=== PATIENT | female | born 1965 | race Hispanic/Latino ===

== ENCOUNTER → 2018-02-14 | Day surgery (SDC) | payer BC ==
[~2018-02-14] MED LIST: ALENDRONATE SOD70 MG PO; AMLODIPINE BESY10 MG PO; BYSTOLIC10 MG PO; CARVEDILOL3.125 MG PO; DIOVAN160 MG PO; ERGOCALCIFEROL1 GM PO; FENTANYL CITRATE/PF 100MCG/2 ML INJ ONE; GLUCAGON FOR INJ 1 MG VIAL ONE; HYOSCYAMINE SULFATE 0.5 MG/ML AMP ONE; LEVOTHYROXINE50 MCG PO; METFORMIN HCL500 MG PO; MIDAZOLAM HCL 2 MG/2 ML VIAL ONE; OMEPRAZOLE40 MG PO; ONDANSETRON HCL INJ 2 MG/ML VIAL ONE; PROPOFOL IV EMULSION 10 MG/ML 50 ML VIAL ONE; SIMVASTATIN20 MG PO; ZOCOR20 MG PO
[2018-02-14 14:12] LABS: WBC,FECAL (FECAL LACTOFERRIN) NEGATIVE (NEGATIVE)
--- NOTE | 2018-02-14 14:35 | Operative Report ---
DATE OF PROCEDURE: February 14, 2018 REFERRING PHYSICIAN: Dr. Cheo Stephens. PROCEDURE PERFORMED: Colonoscopy and polypectomy with biopsies. INDICATIONS FOR COLONOSCOPY: Colorectal cancer screening. Diarrhea. MEDICATION: Patient was done under MAC. Please see anesthesiologist's note. PROCEDURE: With the patient in the left lateral decubitus position, the flexible fiberoptic Olympus colonoscope was inserted into the rectum with ease and advanced all the way to the cecum. A minute polyp was hot biopsied from the cecum. The ileocecal valve was intubated, and the scope was advanced into the terminal ileum. Biopsies were obtained. The scope was then withdrawn back into the colon. It was then withdrawn slowly. Mucosa overlying the ascending and the transverse grossly appeared to be within normal limits. There were some patchy mild inflammatory changes noted in the left colon. Multiple random biopsies were obtained. The scope was then retroflexed into the distal rectum and small internal hemorrhoids were noted, none of which was actively bleeding. The scope was then straightened out. It was subsequently withdrawn after securing an adequate stool specimen that was sent for the appropriate stool studies. Patient tolerated the procedure well. IMPRESSION: 1. Cecal polyp hot biopsied. 2. Patchy left-sided colitis. 3. Internal hemorrhoids, none actively bleeding. PLAN: Follow up histology. Follow up stool studies. Initiate VSL#3 DS 1 p.o. b.i.d. and Bentyl 10 mg 1 p.o. t.i.d. Patient might benefit from a followup colonoscopy in 3 years. Job#: [id number] EV cc:CHEO STEPHENS DO
[2018-02-15 14:41] LABS: C DIFFICILE TOXIN A&B AMP PROB NEGATIVE (NEGATIVE)
== END | disposition home or self-care (01) ==
LOC: OR 10:39
PROVIDERS: ATTEND Internal Medicine Gastroenterology
DX: K51.50 Left sided colitis without complications (principal); D12.0 Benign neoplasm of cecum; K64.8 Other hemorrhoids; K21.9 Gastro-esophageal reflux disease without esophagitis; R63.4 Abnormal weight loss; I10 Essential (primary) hypertension; E11.9 Type 2 diabetes mellitus without complications; E03.9 Hypothyroidism, unspecified; E66.01 Morbid (severe) obesity due to excess calories; Z88.5 Allergy status to narcotic agent; Z01.810 Encounter for preprocedural cardiovascular examination; Z68.38 Body mass index [BMI] 38.0-38.9, adult; Z80.0 Family history of malignant neoplasm of digestive organs
CPT/HCPCS: 36415; 45384; 82948; 83630; 83993; 87045; 87177; 87328; 87493; 93005; J1610; J1980; J2250; J2405; 45378; 45380

== ENCOUNTER 2021-09-26 16:50 | Emergency (ER) | payer BC, OTHER ==
[~2021-09-26] VITALS: Ht 157.5 cm; Wt 95.3 kg
[~2021-09-26 16:50] MED LIST changes: -FENTANYL CITRATE/PF 100MCG/2 ML INJ ONE; -GLUCAGON FOR INJ 1 MG VIAL ONE; -HYOSCYAMINE SULFATE 0.5 MG/ML AMP ONE; -MIDAZOLAM HCL 2 MG/2 ML VIAL ONE; -ONDANSETRON HCL INJ 2 MG/ML VIAL ONE; -PROPOFOL IV EMULSION 10 MG/ML 50 ML VIAL ONE
[2021-09-26] MEDS ORDERED: MECLIZINE HCL 12.5 MG TAB PO ONE (19:45)
[2021-09-26] MEDS ORDERED: SODIUM CHLORIDE 0.9% 1000ML 1,000 ML IV SCH (19:45)
[2021-09-26] MEDS ORDERED: CLONIDINE HCL 0.1 MG TAB PO ONE (20:00)
[2021-09-26] MEDS ORDERED: CLONIDINE HCL 0.1 MG TAB ONE (20:11)
[2021-09-26] MEDS ORDERED: SODIUM CHLORIDE 0.9% 1000ML 1,000 ML ONE (20:12)
[2021-09-26] MEDS ORDERED: ONDANSETRON ODT4 MG PO (22:09)
[2021-09-26] MEDS ORDERED: MECLIZINE HCL25 MG PO (22:09)
[2021-09-26] MEDS ORDERED: MECLIZINE HCL 12.5 MG TAB ONE (22:17)
== END 2021-09-26 22:34 | disposition home or self-care (01) ==
LOC: FSED 19:30
DX: H81.10 Benign paroxysmal vertigo, unspecified ear (principal); E11.65 Type 2 diabetes mellitus with hyperglycemia; I10 Essential (primary) hypertension; E78.5 Hyperlipidemia, unspecified; K21.9 Gastro-esophageal reflux disease without esophagitis; E78.00 Pure hypercholesterolemia, unspecified; E03.9 Hypothyroidism, unspecified; R94.31 Abnormal electrocardiogram [ECG] [EKG]
CPT/HCPCS: 70450; 71046; 80053; 81003; 82553; 83880; 84484; 85025; 85379; 93005; 99284; J7030; J8597

== ENCOUNTER 2025-05-18 11:34 | Emergency (ER) | payer BC, MEDICARE ==
[~2025-05-18] VITALS: Ht 154.9 cm; Wt 91.2 kg
[~2025-05-18 11:34] MED LIST changes: +MECLIZINE HCL25 MG PO; +ONDANSETRON ODT4 MG PO
[2025-05-18 11:38] VITALS: PULSE 83; RESP 20; TEMP 98.1
[2025-05-18] MEDS ORDERED: AZITHROMYCIN250 MG PO (12:48)
[2025-05-18] MEDS ORDERED: BENZONATATE200 MG PO (12:48)
[2025-05-18] MEDS ORDERED: DIPHENHYDRAMINE25 M2 PO (12:48)
[2025-05-18] MEDS ORDERED: TYLENOL325 MG PO (12:48)
[2025-05-18 13:03] VITALS: BP 169/82; O2SAT 97
== END 2025-05-18 12:52 | disposition home or self-care (01) ==
LOC: FSED 11:52
DX: R05.9 Cough, unspecified (principal); J20.9 Acute bronchitis, unspecified; J06.9 Acute upper respiratory infection, unspecified; I10 Essential (primary) hypertension; E11.9 Type 2 diabetes mellitus without complications; E78.5 Hyperlipidemia, unspecified; M19.09 Primary osteoarthritis, other specified site; M81.0 Age-related osteoporosis without current pathological fracture; Z11.52 Encounter for screening for COVID-19
CPT/HCPCS: 71046; 99283